=== PATIENT | male | born 1985 | race African-American/Black ===

== ENCOUNTER 2017-05-11 19:55 | Emergency (ER) | payer OTHER ==
[~2017-05-11] VITALS: Ht 177.8 cm; Wt 77.1 kg
[2017-05-11] MEDS ORDERED: TESSALON PERLE100 MG PO (21:10)
[2017-05-11] MEDS ORDERED: OSELB75 PO (21:10)
[2017-05-11] MEDS ORDERED: IBUPROFEN 800800 M1 PO (21:10)
[2017-05-11] MEDS ORDERED: ACETAMINOPHEN-1 EAC1 PO (21:10)
[2017-05-11] MEDS ORDERED: PROMETHAZINE V473 ML PO (21:11)
[2017-05-11 21:13] LABS: INFLUENZA B ANTIGEN None Detected (None Detect)
[2017-05-11 21:31] VITALS: BP 135/82
== END 2017-05-11 21:32 | disposition home or self-care (01) ==
LOC: M.ERS 19:55
PROVIDERS: Physician Assistant
DX: J11.1 Influenza due to unidentified influenza virus with other respiratory manifestations (principal)